=== PATIENT | male | born 1935 | race African-American/Black ===

== ENCOUNTER 2019-01-23 10:55 | Emergency (ER) | payer OTHER, MEDICAID ==
[~2019-01-23] VITALS: Ht 165.1 cm; Wt 50.0 kg
[~2019-01-23 10:55] MED LIST: INSU100V3 SUBCUT; NIFE30TA94 PO
[2019-01-23 11:46] LABS: BASOPHILS % 0.7 % (0.0-2.0); EOSINOPHILS % 0.4 % (0.0-5.0); HEMATOCRIT. 32.4 % (42.0-52.0); HEMOGLOBIN. 10.6 g/dL (14.0-18.0); LYMPHOCYTES % 25.9 % (20.0-50.0); MEAN CORPUSCULAR HEMOGLOBIN 26.9 pg (28.0-32.0); MEAN CORPUSCULAR VOLUME 82.2 fL (80.0-94.0); MEAN PLATELET VOLUME 8.5 fl (7.4-10.4); MONOCYTES % 4.1 % (2.0-8.0); NEUTROPHILS % 68.9 % (40.0-76.0); PLATELET 215 x1000/uL (130-400); RED BLOOD CELL COUNT 3.94 mill/uL (4.7-6.1); RED CELL DISTRIBUTION WIDTH 15.2 % (11.6-14.6)
[2019-01-23 12:21] LABS: CHLORIDE 110 mEq/L (98-107)
[2019-01-23 18:14] VITALS: BP 126/54
== END 2019-01-23 17:16 | disposition short-term general hospital (02) ==
LOC: ER 10:55 → EDBEDREQTM 14:09 → CANBEDREQ 16:46 → ER 17:16
DX: R55 Syncope and collapse (principal); D64.9 Anemia, unspecified; I12.9 Hypertensive chronic kidney disease with stage 1 through stage 4 chronic kidney disease, or unspecified chronic kidney disease; E11.22 Type 2 diabetes mellitus with diabetic chronic kidney disease; N18.9 Chronic kidney disease, unspecified; Z79.4 Long term (current) use of insulin
CPT/HCPCS: 36415; 70486; 71045; 83880; 84484; 93005; 99285

== ENCOUNTER 2019-10-28 13:19 | Inpatient (IN) | payer OTHER, MEDICAID ==
[~2019-10-28] VITALS: Ht 157.5 cm; Wt 47.3 kg
[2019-10-28] MEDS ORDERED: SODIUM CHLORIDE 0.9% 1,000 ML IV ONE (13:55)
[2019-10-28 15:20] LABS: BASOPHILS % 0.6 % (0.0-2.0); EOSINOPHILS % 0.1 % (0.0-5.0); HEMATOCRIT. 26.9 % (42.0-52.0); HEMOGLOBIN. 8.9 g/dL (14.0-18.0); LYMPHOCYTES % 19.4 % (20.0-50.0); MEAN CORPUSCULAR HEMOGLOBIN 27.5 pg (28.0-32.0); MEAN CORPUSCULAR VOLUME 83.5 fL (80.0-94.0); MEAN PLATELET VOLUME 8.4 fl (7.4-10.4); MONOCYTES % 3.8 % (2.0-8.0); NEUTROPHILS % 76.1 % (40.0-76.0); PLATELET 143 x1000/uL (130-400); RED BLOOD CELL COUNT 3.22 mill/uL (4.7-6.1); RED CELL DISTRIBUTION WIDTH 16.4 % (11.6-14.6)
[2019-10-28 15:22] LABS: CHLORIDE 114 mEq/L (98-107)
[2019-10-28 15:25] LABS: INR 1.1; PROTHROMBIN TIME 11.9 sec (9.6-11.0)
[2019-10-28] MEDS ORDERED: POTASSIUM CHLORIDE 20MEQ TABLET SR PO ONE (16:00)
[2019-10-28 20:00] VITALS: BP 123/53
[2019-10-28 21:00] VITALS: BP 128/76
[2019-10-28] MEDS ORDERED: INSU100V36 SQ (23:00)
[2019-10-28] MEDS ORDERED: TAMS-11 MT (23:00)
[2019-10-28] MEDS ORDERED: FINA5TAB11 PO (23:00)
[2019-10-28] MEDS ORDERED: DULA0.75 SQ (23:00)
[2019-10-28] MEDS ORDERED: HYDR-4135 MT (23:00)
[2019-10-28] MEDS ORDERED: ATOR20TA65 MT (23:00)
[2019-10-28] MEDS ORDERED: CHLO25TA2 MT (23:00)
[2019-10-28] MEDS ORDERED: VIT1TABL62 PO (23:00)
[2019-10-28] MEDS ORDERED: INSU100C6 SQ (23:00)
[2019-10-28] MEDS ORDERED: LOSA100T32 MT (23:00)
[2019-10-28] MEDS ORDERED: NISO40TA3 MT (23:00)
[2019-10-28] MEDS ORDERED: CLONIDINE 0.1MG TABLET PO PRN (23:45)
[2019-10-28] MEDS ORDERED: HYDROCODONE/ACETAMINOPHEN 5/325MG TABLET PO PRN (23:45)
[2019-10-28] MEDS ORDERED: DEXTROSE 50% WATER 50ML SYRINGE IV PRN (23:45)
[2019-10-29] VITALS (9 sets, daily range): BP systolic 133–176; BP diastolic 48–68
[2019-10-29] MEDS: SODIUM CHLORIDE 0.45% 1,000 ML IV SCH ×2 (01:16→15:07)
[2019-10-29 05:13] LABS: CLARITY URINE CLEAR (CLEAR); COLOR URINE YELLOW (YELLOW); KETONES URINE NEGATIVE (NEGATIVE); LEUKOCYTE ESTERASE URINE NEGATIVE (NEGATIVE); NITRITE URINE NEGATIVE (NEGATIVE); OCCULT BLOOD URINE NEGATIVE (NEGATIVE); PROTEIN URINE 1+ (NEGATIVE); SPECIFIC GRAVITY URINE 1.014 (1.005-1.030); UROBILINOGEN URINE 0.2 E.U./dL (0.2-1.0)
[2019-10-29] MEDS: PANTOPRAZOLE 40MG DR TABLET PO SCH (06:20)
[2019-10-29] MEDS: BLOOD SUGAR DIAGNOSTIC STRIP TEST SCH ×4 (06:36→20:40)
[2019-10-29] MEDS: INSULIN LISPRO 100 UNITS/ML SUBCUT SCH ×4 (07:32→20:45)
[2019-10-29] MEDS ORDERED: HYDRALAZINE HCL 25MG TABLET PO SCH (08:45)
[2019-10-29 08:54] LABS: BASOPHILS % 0.4 % (0.0-2.0); EOSINOPHILS % 0.4 % (0.0-5.0); HEMATOCRIT. 21.5 % (42.0-52.0); HEMOGLOBIN. 7.1 g/dL (14.0-18.0); LYMPHOCYTES % 24.2 % (20.0-50.0); MEAN CORPUSCULAR HEMOGLOBIN 27.2 pg (28.0-32.0); MEAN CORPUSCULAR VOLUME 82.8 fL (80.0-94.0); MEAN PLATELET VOLUME 8.9 fl (7.4-10.4); MONOCYTES % 8.2 % (2.0-8.0); NEUTROPHILS % 66.8 % (40.0-76.0); PLATELET 129 x1000/uL (130-400); RED BLOOD CELL COUNT 2.59 mill/uL (4.7-6.1)
[2019-10-29 08:57] LABS: CHLORIDE 113 mEq/L (98-107)
[2019-10-29] MEDS ORDERED: HEPARIN 5000 UNITS/ML VIAL SUBCUT SCH (09:00)
[2019-10-29] MEDS ORDERED: ASPIRIN 81MG TABLET PO SCH (09:00)
[2019-10-29] MEDS: TAMSULOSIN HCL 0.4MG SR CAPSULE PO SCH (09:04)
[2019-10-29 09:08] LABS: LDL CHOLESTEROL 46 mg/dL (5-100)
[2019-10-29 09:09] LABS: HDL CHOLESTEROL 50 mg/dL (40-59)
[2019-10-29] MEDS ORDERED: SODIUM POLYSTYRENE SULFONATE 15 G/60 ML BOT PO SCH (12:00)
[2019-10-29 12:40] LABS: TOTAL IRON BINDING CAPACITY 259 ug/dL (250-450)
[2019-10-29] MEDS: HYDRALAZINE HCL 100MG TABLET PO SCH ×2 (13:10→21:57)
[2019-10-29] MEDS: FERROUS SULFATE 325MG TABLET PO SCH ×2 (13:10→17:29)
[2019-10-29] MEDS: LOSARTAN POTASSIUM 50 MG TABLET PO SCH ×2 (13:19→20:40)
[2019-10-29] MEDS: AMLODIPINE 5MG TABLET PO SCH (20:39)
[2019-10-30] VITALS (9 sets, daily range): BP systolic 107–185; BP diastolic 53–64
[2019-10-30] MEDS: SODIUM CHLORIDE 0.45% 1,000 ML IV SCH ×2 (04:28→17:45)
[2019-10-30] MEDS: HYDRALAZINE HCL 100MG TABLET PO SCH ×3 (05:18→21:00)
[2019-10-30 06:12] LABS: BASOPHILS % 0.9 % (0.0-2.0); EOSINOPHILS % 0.4 % (0.0-5.0); HEMATOCRIT. 28.4 % (42.0-52.0); HEMOGLOBIN. 9.4 g/dL (14.0-18.0); LYMPHOCYTES % 29.2 % (20.0-50.0); MEAN CORPUSCULAR HEMOGLOBIN 27.4 pg (28.0-32.0); MEAN CORPUSCULAR VOLUME 82.9 fL (80.0-94.0); MEAN PLATELET VOLUME 9.2 fl (7.4-10.4); MONOCYTES % 6.7 % (2.0-8.0); NEUTROPHILS % 62.8 % (40.0-76.0); PLATELET 138 x1000/uL (130-400); RED BLOOD CELL COUNT 3.43 mill/uL (4.7-6.1); RED CELL DISTRIBUTION WIDTH 16.4 % (11.6-14.6)
[2019-10-30] MEDS: PANTOPRAZOLE 40MG DR TABLET PO SCH (06:15)
[2019-10-30 06:27] LABS: T4 FREE 1.35 ng/dL (0.76-1.46)
[2019-10-30 06:51] LABS: VITAMIN B12 SERUM 702 pg/mL (211-911)
[2019-10-30] MEDS: INSULIN LISPRO 100 UNITS/ML SUBCUT SCH ×4 (07:21→20:36)
[2019-10-30] MEDS: BLOOD SUGAR DIAGNOSTIC STRIP TEST SCH ×4 (07:21→20:37)
[2019-10-30] MEDS: LOSARTAN POTASSIUM 50 MG TABLET PO SCH ×2 (09:16→20:36)
[2019-10-30] MEDS: FERROUS SULFATE 325MG TABLET PO SCH (09:16)
[2019-10-30] MEDS: AMLODIPINE 5MG TABLET PO SCH ×2 (09:16→20:36)
[2019-10-30] MEDS: TAMSULOSIN HCL 0.4MG SR CAPSULE PO SCH (09:17)
[2019-10-30] MEDS: MAGNESIUM OXIDE 400MG TABLET PO SCH (10:31)
[2019-10-30] MEDS ORDERED: SORBITOL 70% SOLN 30ML PO SCH (10:45)
[2019-10-30] MEDS: DOCUSATE SODIUM 250MG CAPSULE PO SCH (17:45)
[2019-10-31] VITALS (7 sets, daily range): BP systolic 131–153; BP diastolic 51–88
[2019-10-31] MEDS: HYDRALAZINE HCL 100MG TABLET PO SCH ×3 (06:32→21:18)
[2019-10-31] MEDS: BLOOD SUGAR DIAGNOSTIC STRIP TEST SCH ×4 (06:32→20:51)
[2019-10-31] MEDS: SODIUM CHLORIDE 0.45% 1,000 ML IV SCH ×2 (06:32→20:34)
[2019-10-31] MEDS: PANTOPRAZOLE 40MG DR TABLET PO SCH (06:32)
[2019-10-31 07:16] LABS: BASOPHILS % 0.9 % (0.0-2.0); EOSINOPHILS % 0.1 % (0.0-5.0); HEMATOCRIT. 28.6 % (42.0-52.0); HEMOGLOBIN. 9.6 g/dL (14.0-18.0); LYMPHOCYTES % 34.4 % (20.0-50.0); MEAN CORPUSCULAR HEMOGLOBIN 27.8 pg (28.0-32.0); MEAN CORPUSCULAR VOLUME 83.2 fL (80.0-94.0); MEAN PLATELET VOLUME 9.5 fl (7.4-10.4); MONOCYTES % 6.6 % (2.0-8.0); PLATELET 139 x1000/uL (130-400); RED BLOOD CELL COUNT 3.43 mill/uL (4.7-6.1); RED CELL DISTRIBUTION WIDTH 15.8 % (11.6-14.6)
[2019-10-31] MEDS: INSULIN LISPRO 100 UNITS/ML SUBCUT SCH ×4 (07:41→20:52)
[2019-10-31] MEDS: MAGNESIUM OXIDE 400MG TABLET PO SCH (08:33)
[2019-10-31] MEDS: LOSARTAN POTASSIUM 50 MG TABLET PO SCH ×2 (08:34→21:19)
[2019-10-31] MEDS: AMLODIPINE 5MG TABLET PO SCH ×2 (08:34→21:19)
[2019-10-31] MEDS: DOCUSATE SODIUM 250MG CAPSULE PO SCH ×2 (08:34→17:00)
[2019-10-31] MEDS: TAMSULOSIN HCL 0.4MG SR CAPSULE PO SCH (08:34)
[2019-11-01] MEDS ORDERED: FAMOTIDINE 20MG TABLET PO SCH (09:00)
== END 2019-10-31 22:50 | disposition short-term general hospital (02) | DRG 73 ==
LOC: ER 13:19 → 6WST 18:09 → EDBEDREQ 18:10 → ENRESERV 19:57
PROVIDERS: ADMIT Internal Medicine; ATTEND Internal Medicine
PROC: 30233N1 Transfusion of Nonautologous Red Blood Cells into Peripheral Vein, Percutaneous Approach (ICD-10-PCS; principal; 2019-10-29)
DX: G90.8 Other disorders of autonomic nervous system (principal); I50.33 Acute on chronic diastolic (congestive) heart failure; N17.9 Acute kidney failure, unspecified; G93.40 Encephalopathy, unspecified; I13.0 Hypertensive heart and chronic kidney disease with heart failure and stage 1 through stage 4 chronic kidney disease, or unspecified chronic kidney disease; D50.9 Iron deficiency anemia, unspecified; D73.89 Other diseases of spleen; N18.9 Chronic kidney disease, unspecified; N40.1 Benign prostatic hyperplasia with lower urinary tract symptoms; R33.8 Other retention of urine; N20.0 Calculus of kidney; J44.9 Chronic obstructive pulmonary disease, unspecified; I27.20 Pulmonary hypertension, unspecified; R74.0 Nonspecific elevation of levels of transaminase and lactic acid dehydrogenase [LDH]; F17.210 Nicotine dependence, cigarettes, uncomplicated; E87.5 Hyperkalemia; E11.22 Type 2 diabetes mellitus with diabetic chronic kidney disease; E83.42 Hypomagnesemia; E87.8 Other disorders of electrolyte and fluid balance, not elsewhere classified; Z86.73 Personal history of transient ischemic attack (TIA), and cerebral infarction without residual deficits; Z71.6 Tobacco abuse counseling; Z79.899 Other long term (current) drug therapy; Z03.818 Encounter for observation for suspected exposure to other biological agents ruled out
CPT/HCPCS: 36415; 71045; 76770; 80048; 80053; 80061; 81003; 82270; 82607; 82728; 82962; 83036; 83540; 83550; 83735; 84153; 84439; 84484; 85025; 85044; 86850; 86900; 86920; 87635; 93005; 93306; 93880; 97162; 99285; J1644; J1815; J7030; P9016; G0103

== ENCOUNTER 2020-02-10 10:40 | Emergency (ER) | payer OTHER, MEDICAID ==
[~2020-02-10] VITALS: Ht 170.2 cm; Wt 65.0 kg
[~2020-02-10 10:40] MED LIST changes: +ATOR20TA65 MT; +CHLO25TA2 MT; +DULA0.75 SQ; +FINA5TAB11 PO; +HYDR-4135 MT; +INSU100C6 SQ; +INSU100V36 SQ; +LOSA100T32 MT; +NISO40TA3 MT; +TAMS-11 MT; +VIT1TABL62 PO
[2020-02-10 12:14] LABS: BASOPHILS % 1.2 % (0.0-2.0); EOSINOPHILS % 0.1 % (0.0-5.0); HEMATOCRIT. 28.7 % (42.0-52.0); HEMOGLOBIN. 9.6 g/dL (14.0-18.0); LYMPHOCYTES % 20.7 % (20.0-50.0); MEAN CORPUSCULAR HEMOGLOBIN 27.4 pg (28.0-32.0); MEAN CORPUSCULAR VOLUME 81.7 fL (80.0-94.0); MEAN PLATELET VOLUME 10.4 fl (7.4-10.4); MONOCYTES % 7.1 % (2.0-8.0); NEUTROPHILS % 70.9 % (40.0-76.0); PLATELET 199 x1000/uL (130-400); RED BLOOD CELL COUNT 3.51 mill/uL (4.7-6.1); RED CELL DISTRIBUTION WIDTH 13.6 % (11.6-14.6)
[2020-02-10 12:16] LABS: CHLORIDE 104 mEq/L (98-107)
[2020-02-10] MEDS ORDERED: SODIUM CHLORIDE 0.9% 500 ML IV NR (13:15)
[2020-02-10] MEDS ORDERED: SODIUM CHLORIDE 0.9% 1,000 ML IV ONE (23:48)
[2020-02-11 00:14] VITALS: BP 149/64
== END 2020-02-11 00:42 | disposition short-term general hospital (02) ==
LOC: ER 10:40
DX: I12.9 Hypertensive chronic kidney disease with stage 1 through stage 4 chronic kidney disease, or unspecified chronic kidney disease (principal); E11.22 Type 2 diabetes mellitus with diabetic chronic kidney disease; N18.9 Chronic kidney disease, unspecified; R55 Syncope and collapse; Z86.73 Personal history of transient ischemic attack (TIA), and cerebral infarction without residual deficits; Z79.4 Long term (current) use of insulin; Z79.899 Other long term (current) drug therapy; Z20.828 Contact with and (suspected) exposure to other viral communicable diseases
CPT/HCPCS: 36415; 71045; 76770; 80053; 82962; 83880; 84484; 85025; 87426; 93005; 96360; 96361; 99285

== ENCOUNTER 2020-12-28 06:23 | Inpatient (IN) | payer OTHER, MEDICAID ==
[~2020-12-28] VITALS: Ht 157.5 cm; Wt 42.7 kg
[~2020-12-28 06:23] MED LIST changes: +LEVO250T58 MT; -LOSA100T32 MT; -NISO40TA3 MT; +SODI650T MT
[2020-12-28] MEDS ORDERED: SODIUM CHLORIDE 0.9% 1,000 ML IV ONE (06:45)
[2020-12-28 08:51] LABS: BASOPHILS % 0.7 % (0.0-2.0); HEMATOCRIT. 26.3 % (42.0-52.0); HEMOGLOBIN. 8.4 g/dL (14.0-18.0); LYMPHOCYTES % 8.3 % (20.0-50.0); MEAN CORPUSCULAR VOLUME 84.3 fL (80.0-94.0); MEAN PLATELET VOLUME 8.2 fl (7.4-10.4); MONOCYTES % 7.2 % (2.0-8.0); NEUTROPHILS % 83.8 % (40.0-76.0); PLATELET 207 x1000/uL (130-400); RED BLOOD CELL COUNT 3.12 mill/uL (4.7-6.1); RED CELL DISTRIBUTION WIDTH 17.2 % (11.6-14.6)
[2020-12-28 09:28] LABS: CHLORIDE 115 mEq/L (98-107)
[2020-12-28] MEDS ORDERED: FUROSEMIDE 100MG/10ML VIAL IV STA (10:37)
[2020-12-28] MEDS ORDERED: DEXTROSE 50% WATER 50ML SYRINGE IV ONE ×2 (10:45→17:15)
[2020-12-28] MEDS ORDERED: INSULIN REGULAR (HUMULIN R) 300UNITS/3ML VIAL IV ONE (10:45)
[2020-12-28] MEDS ORDERED: SODIUM BICARBONATE 8.4% 1 MEQ/ML 50ML SYR IV ONE (10:45)
[2020-12-28] MEDS ORDERED: CALCIUM CHLORIDE 1GM/10ML SYR IV ONE (10:45)
[2020-12-28] MEDS ORDERED: ALBUTEROL (0.083%) 2.5MG/3ML NEB HHN ONE (10:45)
[2020-12-28] MEDS ORDERED: CLONIDINE 0.2MG TABLET PO ONE (17:00)
[2020-12-28] MEDS ORDERED: DEXT 5%/0.45% NACL 1000ML 1,000 ML IV ONE (17:30)
[2020-12-28 23:30] VITALS: BP 182/77
[2020-12-29] MEDS ORDERED: CLONIDINE 0.1MG TABLET PO SCH (01:45)
[2020-12-29] MEDS ORDERED: CLONIDINE 0.1MG TABLET PO PRN (01:45)
[2020-12-29] MEDS ORDERED: DEXTROSE 50% WATER 50ML SYRINGE IV PRN (02:00)
[2020-12-29 02:32] VITALS: BP 182/77
[2020-12-29] MEDS: SODIUM BICARBONATE 50 MEQ in DEXT 5%/0.45% NACL 1000ML 1,000 ML IV SCH ×2 (03:31→13:50)
[2020-12-29 04:00] VITALS: BP 159/72
[2020-12-29] MEDS: INSULIN LISPRO 100 UNITS/ML SUBCUT SCH ×5 (04:00→21:42)
[2020-12-29] MEDS: BLOOD SUGAR DIAGNOSTIC STRIP TEST SCH ×5 (04:10→21:40)
[2020-12-29 08:00] VITALS: BP 178/76
[2020-12-29] MEDS: ENOXAPARIN 30MG/0.3ML SYR SUBCUT SCH (08:37)
[2020-12-29] MEDS: TAMSULOSIN HCL 0.4MG SR CAPSULE PO SCH (08:38)
[2020-12-29 10:15] LABS: HEMATOCRIT 26.6 % (42.0-52.0); HEMOGLOBIN 8.7 g/dL (14.0-18.0); MEAN CORPUSCULAR HEMOGLOBIN 26.8 pg (28.0-32.0); MEAN CORPUSCULAR VOLUME 81.9 fL (80.0-94.0); PLATELET 210 x1000/uL (130-400); RED BLOOD CELL COUNT 3.25 mill/uL (4.7-6.1); RED CELL DISTRIBUTION WIDTH 17.1 % (11.6-14.6)
[2020-12-29 10:44] LABS: CHLORIDE 108 mEq/L (98-107)
[2020-12-29 12:00] VITALS: BP 118/68
[2020-12-29] MEDS ORDERED: SODIUM POLYSTYRENE SULFONATE 15 G/60 ML BOT PO NR (13:00)
[2020-12-29 13:45] LABS: BASOPHILS % 1.1 % (0.0-2.0); EOSINOPHILS % 0.3 % (0.0-5.0); HEMATOCRIT. 23.1 % (42.0-52.0); HEMOGLOBIN. 7.8 g/dL (14.0-18.0); LYMPHOCYTES % 18.4 % (20.0-50.0); MEAN CORPUSCULAR HEMOGLOBIN 27.2 pg (28.0-32.0); MEAN CORPUSCULAR VOLUME 80.2 fL (80.0-94.0); MEAN PLATELET VOLUME 8.6 fl (7.4-10.4); MONOCYTES % 6.6 % (2.0-8.0); NEUTROPHILS % 73.6 % (40.0-76.0); PLATELET 185 x1000/uL (130-400); RED BLOOD CELL COUNT 2.88 mill/uL (4.7-6.1); RED CELL DISTRIBUTION WIDTH 16.9 % (11.6-14.6)
[2020-12-29] MEDS: HYDRALAZINE HCL 50MG TABLET PO SCH ×2 (13:52→21:40)
[2020-12-29] MEDS ORDERED: INSU100V3 SUBCUT (15:11)
[2020-12-29] MEDS ORDERED: SODI650T MT (15:11)
[2020-12-29] MEDS ORDERED: ACETAMINOPHEN 650MG SUPP PR PRN (15:15)
[2020-12-29] MEDS ORDERED: LORAZEPAM 2MG/ML CPJ IV PRN (15:15)
[2020-12-29] MEDS ORDERED: ONDANSETRON HCL 4MG/2ML INJ IV PRN (15:15)
[2020-12-29] MEDS ORDERED: ACETAMINOPHEN 325MG TABLET PO PRN (15:15)
[2020-12-29] MEDS ORDERED: NALOXONE HCL 0.4MG/ML VIAL IV PRN (15:15)
[2020-12-29 16:00] VITALS: BP 129/60
[2020-12-29] MEDS: SODIUM BICARBONATE 650 MG TABLET PO SCH (17:31)
[2020-12-29] MEDS: HYDROCODONE/ACETAMINOPHEN 5/325MG TABLET PO PRN (17:33)
[2020-12-29 20:41] VITALS: BP 149/60
[2020-12-30 00:09] VITALS: BP 144/56
[2020-12-30 04:00] VITALS: BP 138/60
[2020-12-30] MEDS: BLOOD SUGAR DIAGNOSTIC STRIP TEST SCH ×2 (06:31→12:51)
[2020-12-30] MEDS: HYDRALAZINE HCL 50MG TABLET PO SCH ×2 (06:35→12:53)
[2020-12-30 06:46] LABS: BASOPHILS % 1.1 % (0.0-2.0); EOSINOPHILS % 0.6 % (0.0-5.0); HEMATOCRIT. 24.1 % (42.0-52.0); LYMPHOCYTES % 33.3 % (20.0-50.0); MEAN CORPUSCULAR HEMOGLOBIN 26.8 pg (28.0-32.0); MEAN CORPUSCULAR VOLUME 80.4 fL (80.0-94.0); MEAN PLATELET VOLUME 8.7 fl (7.4-10.4); MONOCYTES % 6.8 % (2.0-8.0); NEUTROPHILS % 58.2 % (40.0-76.0); PLATELET 218 x1000/uL (130-400); RED CELL DISTRIBUTION WIDTH 16.9 % (11.6-14.6)
[2020-12-30] MEDS: INSULIN LISPRO 100 UNITS/ML SUBCUT SCH ×2 (07:50→12:51)
[2020-12-30 08:00] VITALS: BP 149/69
[2020-12-30] MEDS: SODIUM BICARBONATE 650 MG TABLET PO SCH ×2 (09:00→12:51)
[2020-12-30] MEDS: TAMSULOSIN HCL 0.4MG SR CAPSULE PO SCH (09:00)
[2020-12-30] MEDS: ENOXAPARIN 30MG/0.3ML SYR SUBCUT SCH (09:00)
[2020-12-30] MEDS: HYDROCODONE/ACETAMINOPHEN 5/325MG TABLET PO PRN ×2 (09:02→12:52)
[2020-12-30 12:11] VITALS: BP 135/63
[2020-12-30 14:16] VITALS: BP 126/66
== END 2020-12-30 16:00 | disposition home or self-care (01) | DRG 638 ==
LOC: ER 06:40 → EDBEDREQ 17:21 → EDBEDREQTM 17:21 → EDBEDREQ 17:22 → MICUSO 20:25 → 6WST 22:20
PROVIDERS: ADMIT Internal Medicine; ATTEND Internal Medicine
DX: E11.649 Type 2 diabetes mellitus with hypoglycemia without coma (principal); J44.1 Chronic obstructive pulmonary disease with (acute) exacerbation; E11.22 Type 2 diabetes mellitus with diabetic chronic kidney disease; N17.9 Acute kidney failure, unspecified; D64.9 Anemia, unspecified; I16.0 Hypertensive urgency; N18.9 Chronic kidney disease, unspecified; I12.9 Hypertensive chronic kidney disease with stage 1 through stage 4 chronic kidney disease, or unspecified chronic kidney disease; E87.5 Hyperkalemia; R91.1 Solitary pulmonary nodule; N40.0 Benign prostatic hyperplasia without lower urinary tract symptoms; Z86.73 Personal history of transient ischemic attack (TIA), and cerebral infarction without residual deficits; Z79.899 Other long term (current) drug therapy; Z79.4 Long term (current) use of insulin
CPT/HCPCS: 36415; 71045; 80048; 80053; 82962; 83036; 84132; 84153; 84484; 85025; 85027; 93005; 94644; 97116; 97162; 99285; J1650; J1815; J1940; J3490; J7030; A4315; G0103

== ENCOUNTER 2021-01-11 08:56 | Inpatient (IN) | payer OTHER, MEDICAID ==
[~2021-01-11] VITALS: Ht 157.5 cm; Wt 51.3 kg
[~2021-01-11 08:56] MED LIST changes: -DULA0.75 SQ; -INSU100C6 SQ; -INSU100V3 SUBCUT; -INSU100V36 SQ; -LEVO250T58 MT
[2021-01-11] MEDS ORDERED: SODIUM CHLORIDE 0.9% 250 ML IV ONE (09:15)
[2021-01-11 10:16] LABS: BASOPHILS % 0.6 % (0.0-2.0); EOSINOPHILS % 0.1 % (0.0-5.0); HEMATOCRIT. 23.8 % (42.0-52.0); HEMOGLOBIN. 7.9 g/dL (14.0-18.0); LYMPHOCYTES % 11.1 % (20.0-50.0); MEAN CORPUSCULAR HEMOGLOBIN 27.2 pg (28.0-32.0); MEAN PLATELET VOLUME 8.7 fl (7.4-10.4); NEUTROPHILS % 82.2 % (40.0-76.0); PLATELET 198 x1000/uL (130-400); RED CELL DISTRIBUTION WIDTH 16.9 % (11.6-14.6)
[2021-01-11 10:23] LABS: CLARITY URINE CLEAR (CLEAR); COLOR URINE YELLOW (YELLOW); KETONES URINE NEGATIVE (NEGATIVE); LEUKOCYTE ESTERASE URINE NEGATIVE (NEGATIVE); NITRITE URINE NEGATIVE (NEGATIVE); OCCULT BLOOD URINE NEGATIVE (NEGATIVE); PROTEIN URINE TRACE (NEGATIVE); UROBILINOGEN URINE 0.2 E.U./dL (0.2-1.0)
[2021-01-11 10:27] LABS: CHLORIDE 114 mEq/L (98-107)
[2021-01-11] MEDS ORDERED: DEXTROSE 50% WATER 50ML SYRINGE IV ONE (11:00)
[2021-01-11] MEDS ORDERED: SODIUM POLYSTYRENE SULFONATE 15 G/60 ML BOT PO NR (11:11)
[2021-01-11] MEDS ORDERED: DEXTROSE 50% WATER 50ML SYRINGE IV NR (11:11)
[2021-01-11] MEDS ORDERED: SODIUM BICARBONATE 8.4% 1 MEQ/ML 50ML SYR IV NR (11:12)
[2021-01-11] MEDS ORDERED: IPRATROPIUM/ALBUTEROL 0.5-3(2.5)MG/3ML NEB HHN NR (11:12)
[2021-01-11] MEDS ORDERED: IPRATROPIUM/ALBUTEROL 0.5-3(2.5)MG/3ML NEB NEB PRN (11:15)
[2021-01-11] MEDS ORDERED: HYDRALAZINE 20MG/ML VIAL IV NR (11:15)
[2021-01-11] MEDS ORDERED: DEXTROSE 50% WATER 50ML SYRINGE IV PRN (11:15)
[2021-01-11] MEDS ORDERED: GUAIFENESIN 200MG/10ML SUGAR FREE UDC PO PRN (11:15)
[2021-01-11] MEDS ORDERED: ACETAMINOPHEN 325MG TABLET PO PRN (11:15)
[2021-01-11] MEDS ORDERED: NA PHOS,M-B/NA PHOS,DI-BA ENEMA 118ML PR PRN (11:15)
[2021-01-11] MEDS ORDERED: HYDROCODONE/ACETAMINOPHEN 5/325MG TABLET PO PRN (11:15)
[2021-01-11] MEDS ORDERED: ACETAMINOPHEN 650MG SUPP PR PRN (11:15)
[2021-01-11] MEDS ORDERED: ONDANSETRON HCL 4MG/2ML INJ IV PRN (11:15)
[2021-01-11] MEDS ORDERED: LORAZEPAM 0.5MG TABLET PO PRN (11:15)
[2021-01-11] MEDS ORDERED: DOCUSATE SODIUM 100MG CAPSULE PO PRN (11:15)
[2021-01-11] MEDS ORDERED: MAGNESIUM/ALUMINUM HYDROXIDE/SIMETHICONE 30ML UDC PO PRN (11:15)
[2021-01-11] MEDS ORDERED: DIPHENHYDRAMINE 50MG/ML VIAL IV PRN (11:15)
[2021-01-11] MEDS ORDERED: CALCIUM GLUCONATE 1GM PREMIX 50 ML IV NR (11:30)
[2021-01-11] MEDS: BLOOD SUGAR DIAGNOSTIC STRIP TEST SCH ×5 (11:30→20:41)
[2021-01-11] MEDS ORDERED: NALOXONE HCL 0.4MG/ML VIAL IV PRN (11:30)
[2021-01-11] MEDS: CLONIDINE 0.1MG TABLET PO PRN (12:31)
[2021-01-11] MEDS: FAMOTIDINE 20MG/2ML VIAL IV SCH (12:44)
[2021-01-11] MEDS: DEXT 5%/0.45% NACL 1000ML 1,000 ML IV SCH ×2 (12:52→16:37)
[2021-01-11] MEDS ORDERED: MORPHINE SULFATE 2 MG/ML CPJ (NOT FOR IM USE) IV ONE (13:45)
[2021-01-11 15:38] LABS: HEPATITIS B SURFACE ANTIGEN NEGATIVE
[2021-01-11 16:00] VITALS: BP 153/67
[2021-01-11] MEDS: HYDRALAZINE HCL 50MG TABLET PO SCH ×2 (16:38→22:27)
[2021-01-11 18:51] VITALS: BP 153/67
[2021-01-11 20:00] VITALS: BP 130/70
[2021-01-12] VITALS (9 sets, daily range): BP systolic 119–180; BP diastolic 59–96
[2021-01-12] MEDS: BLOOD SUGAR DIAGNOSTIC STRIP TEST SCH ×7 (04:53→23:55)
[2021-01-12] MEDS: HYDRALAZINE HCL 50MG TABLET PO SCH ×3 (06:01→21:39)
[2021-01-12 06:31] LABS: HEMATOCRIT. 21.9 % (42.0-52.0); HEMOGLOBIN. 7.3 g/dL (14.0-18.0); LYMPHOCYTES % 18.9 % (20.0-50.0); MEAN CORPUSCULAR HEMOGLOBIN 27.2 pg (28.0-32.0); MEAN CORPUSCULAR VOLUME 82.1 fL (80.0-94.0); MEAN PLATELET VOLUME 9.2 fl (7.4-10.4); MONOCYTES % 7.3 % (2.0-8.0); NEUTROPHILS % 71.8 % (40.0-76.0); PLATELET 195 x1000/uL (130-400); RED BLOOD CELL COUNT 2.67 mill/uL (4.7-6.1); RED CELL DISTRIBUTION WIDTH 17.6 % (11.6-14.6)
[2021-01-12 07:02] LABS: CHLORIDE 116 mEq/L (98-107)
[2021-01-12 08:07] LABS: T4 FREE 1.02 ng/dL (0.76-1.46)
[2021-01-12 08:08] LABS: LDL CHOLESTEROL 23 mg/dL (5-100)
[2021-01-12 08:12] LABS: HDL CHOLESTEROL 47 mg/dL (40-59)
[2021-01-12] MEDS: FAMOTIDINE 20MG/2ML VIAL IV SCH (08:55)
[2021-01-12] MEDS ORDERED: LIDOCAINE HCL 1% 30ML VIAL (10MG/ML) ONE (12:40)
[2021-01-12 13:44] LABS: INR 1.1; PROTHROMBIN TIME 11.4 sec (9.6-11.0)
[2021-01-12] MEDS: CLONIDINE 0.1MG TABLET PO PRN (15:39)
[2021-01-12] MEDS: HYDRALAZINE 20MG/ML VIAL IV PRN ×2 (16:03→23:55)
[2021-01-12] MEDS ORDERED: HYDRALAZINE 20MG/ML VIAL IV NR (17:45)
[2021-01-12 23:14] LABS: INR 1.1; PROTHROMBIN TIME 11.6 sec (9.6-11.0)
[2021-01-13] VITALS: BP 171/74
[2021-01-13 04:00] VITALS: BP 177/71
[2021-01-13] MEDS: BLOOD SUGAR DIAGNOSTIC STRIP TEST SCH ×4 (04:29→16:00)
[2021-01-13] MEDS: CLONIDINE 0.1MG TABLET PO PRN (04:29)
[2021-01-13] MEDS: HYDRALAZINE HCL 50MG TABLET PO SCH (05:42)
[2021-01-13 06:21] LABS: EOSINOPHILS % 1.1 % (0.0-5.0); HEMATOCRIT. 25.1 % (42.0-52.0); HEMOGLOBIN. 8.4 g/dL (14.0-18.0); LYMPHOCYTES % 27.6 % (20.0-50.0); MEAN CORPUSCULAR HEMOGLOBIN 27.8 pg (28.0-32.0); MEAN PLATELET VOLUME 9.3 fl (7.4-10.4); MONOCYTES % 7.9 % (2.0-8.0); NEUTROPHILS % 62.4 % (40.0-76.0); PLATELET 202 x1000/uL (130-400); RED BLOOD CELL COUNT 3.03 mill/uL (4.7-6.1); RED CELL DISTRIBUTION WIDTH 16.9 % (11.6-14.6)
[2021-01-13] MEDS: HYDRALAZINE 20MG/ML VIAL IV PRN (06:47)
[2021-01-13 08:00] VITALS: BP 167/66
[2021-01-13] MEDS ORDERED: AMLODIPINE 5MG TABLET PO SCH (09:20)
[2021-01-13] MEDS: FAMOTIDINE 20MG/2ML VIAL IV SCH (09:23)
[2021-01-13 12:00] VITALS: BP 163/65
[2021-01-13] MEDS ORDERED: HYDRALAZINE HCL 100MG TABLET PO SCH (14:00)
[2021-01-13] MEDS ORDERED: HYDR100T26 MT (15:41)
[2021-01-13 15:53] VITALS: BP 155/69
[2021-01-13 16:00] VITALS: BP 149/56
[2021-01-14] MEDS ORDERED: FAMOTIDINE 20MG TABLET PO SCH (09:00)
== END 2021-01-13 20:20 | disposition left against medical advice (07) | DRG 71 ==
LOC: ER 08:56 → 7EST 11:03 → EDBEDREQ 11:07 → ENRESERV 13:13
PROVIDERS: ADMIT Internal Medicine; ATTEND Internal Medicine
PROC: 30233N1 Transfusion of Nonautologous Red Blood Cells into Peripheral Vein, Percutaneous Approach (ICD-10-PCS; principal; 2021-01-12)
PROC: 02HV33Z Insertion of Infusion Device into Superior Vena Cava, Percutaneous Approach (ICD-10-PCS; 2021-01-12)
PROC: B518ZZA Fluoroscopy of Superior Vena Cava, Guidance (ICD-10-PCS; 2021-01-12)
PROC: B548ZZA Ultrasonography of Superior Vena Cava, Guidance (ICD-10-PCS; 2021-01-12)
DX: G93.41 Metabolic encephalopathy (principal); K86.3 Pseudocyst of pancreas; J44.1 Chronic obstructive pulmonary disease with (acute) exacerbation; E44.1 Mild protein-calorie malnutrition; E11.649 Type 2 diabetes mellitus with hypoglycemia without coma; T38.3X5A Adverse effect of insulin and oral hypoglycemic [antidiabetic] drugs, initial encounter; D64.9 Anemia, unspecified; E11.22 Type 2 diabetes mellitus with diabetic chronic kidney disease; E87.5 Hyperkalemia; D49.0 Neoplasm of unspecified behavior of digestive system; Z53.29 Procedure and treatment not carried out because of patient's decision for other reasons; D73.89 Other diseases of spleen; I12.9 Hypertensive chronic kidney disease with stage 1 through stage 4 chronic kidney disease, or unspecified chronic kidney disease; R91.1 Solitary pulmonary nodule; Z20.822 Contact with and (suspected) exposure to COVID-19; N18.9 Chronic kidney disease, unspecified; N40.0 Benign prostatic hyperplasia without lower urinary tract symptoms; Z86.73 Personal history of transient ischemic attack (TIA), and cerebral infarction without residual deficits; Y92.89 Other specified places as the place of occurrence of the external cause; Z79.899 Other long term (current) drug therapy; Z68.20 Body mass index [BMI] 20.0-20.9, adult
CPT/HCPCS: 36415; 36573; 71045; 74181; 76700; 80048; 80053; 80061; 80076; 80320; 81003; 82105; 82378; 82962; 83036; 83880; 84132; 84439; 84443; 84484; 85014; 85018; 85025; 85049; 86301; 86705; 86709; 86803; 86850; 86900; 86920; 87340; 87426; 93005; 97162; 99291; C1725; C1769; J0360; J0610; J3490; J7050; P9016; G0480

== ENCOUNTER 2021-01-18 17:28 | Inpatient (IN) | payer OTHER, MEDICAID ==
[~2021-01-18] VITALS: Ht 162.6 cm; Wt 51.7 kg
[~2021-01-18 17:28] MED LIST changes: -CHLO25TA2 MT; -HYDR-4135 MT; +HYDR100T26 MT
[2021-01-18] MEDS ORDERED: ACETAMINOPHEN 500MG TABLET PO ONE (20:45)
[2021-01-18 21:40] LABS: BASOPHILS % 1.2 % (0.0-2.0); CHLORIDE 117 mEq/L (98-107); EOSINOPHILS % 1.7 % (0.0-5.0); HEMATOCRIT. 28.9 % (42.0-52.0); HEMOGLOBIN. 9.4 g/dL (14.0-18.0); LYMPHOCYTES % 24.7 % (20.0-50.0); MEAN CORPUSCULAR HEMOGLOBIN 27.3 pg (28.0-32.0); MEAN CORPUSCULAR VOLUME 83.6 fL (80.0-94.0); MEAN PLATELET VOLUME 9.1 fl (7.4-10.4); MONOCYTES % 11.5 % (2.0-8.0); NEUTROPHILS % 60.9 % (40.0-76.0); PLATELET 212 x1000/uL (130-400); RED BLOOD CELL COUNT 3.46 mill/uL (4.7-6.1); RED CELL DISTRIBUTION WIDTH 16.7 % (11.6-14.6)
[2021-01-18] MEDS ORDERED: HYDR-4001 MT (23:15)
[2021-01-19] VITALS (8 sets, daily range): BP systolic 150–171; BP diastolic 72–92
[2021-01-19 04:06] LABS: CLARITY URINE CLEAR (CLEAR); COLOR URINE YELLOW (YELLOW); KETONES URINE NEGATIVE (NEGATIVE); LEUKOCYTE ESTERASE URINE NEGATIVE (NEGATIVE); NITRITE URINE NEGATIVE (NEGATIVE); OCCULT BLOOD URINE NEGATIVE (NEGATIVE); PROTEIN URINE 1+ (NEGATIVE); SPECIFIC GRAVITY URINE 1.014 (1.005-1.030); UROBILINOGEN URINE 0.2 E.U./dL (0.2-1.0)
[2021-01-19] MEDS ORDERED: CLONIDINE 0.2MG TABLET PO NR (07:00)
[2021-01-19] MEDS ORDERED: MAGNESIUM/ALUMINUM HYDROXIDE/SIMETHICONE 30ML UDC PO PRN (10:30)
[2021-01-19] MEDS ORDERED: DEXTROSE 50% WATER 50ML SYRINGE IV PRN (10:30)
[2021-01-19] MEDS ORDERED: GUAIFENESIN 200MG/10ML SUGAR FREE UDC PO PRN (10:30)
[2021-01-19] MEDS ORDERED: DOCUSATE SODIUM 100MG CAPSULE PO PRN (10:30)
[2021-01-19] MEDS ORDERED: CEFTRIAXONE 1 G PREMIX 50 ML IV SCH (10:30)
[2021-01-19] MEDS ORDERED: ONDANSETRON HCL 4MG/2ML INJ IV PRN (10:30)
[2021-01-19] MEDS ORDERED: ACETAMINOPHEN 650MG SUPP PR PRN (10:30)
[2021-01-19] MEDS ORDERED: DIPHENHYDRAMINE 50MG/ML VIAL IV PRN (10:30)
[2021-01-19] MEDS ORDERED: CLONIDINE 0.1MG TABLET PO PRN (10:30)
[2021-01-19] MEDS ORDERED: LORAZEPAM 0.5MG TABLET PO PRN (10:30)
[2021-01-19] MEDS ORDERED: IPRATROPIUM/ALBUTEROL 0.5-3(2.5)MG/3ML NEB NEB PRN (10:30)
[2021-01-19] MEDS ORDERED: NA PHOS,M-B/NA PHOS,DI-BA ENEMA 118ML PR PRN (10:30)
[2021-01-19 10:52] LABS: BG CARBOXYHEMOGLOBIN 0.1 % (0.5-1.5); BG DEOXYHEMOGLOBIN 5.5 % (0.0-5.0); BG FRACTION INSPIRED OXYGEN 21; BG METHEMOGLOBIN 0.4 % (0.0-1.5); BG OXYGEN SATURATION 94.5 % (92.0-98.5); BG PCO2 32.1 mmHg (35.0-45.0); BG PH 7.412 (7.350-7.450); BG PO2 75.7 mmHg (75.0-100.0); BG TOTAL HEMOGLOBIN 9.4 g/dL (12.0-18.0); BG VENT MODE ROOM AIR
[2021-01-19] MEDS ORDERED: HYDRALAZINE 20MG/ML VIAL IV NR (11:15)
[2021-01-19] MEDS: BLOOD SUGAR DIAGNOSTIC STRIP TEST SCH ×3 (13:27→21:40)
[2021-01-19] MEDS: CEFTRIAXONE 1,000 MG in DEXTROSE 5% WATER 50 ML IV SCH (13:27)
[2021-01-19] MEDS: SODIUM BICARBONATE 650 MG TABLET PO SCH ×2 (13:28→17:33)
[2021-01-19] MEDS: TAMSULOSIN HCL 0.4MG SR CAPSULE PO SCH (13:28)
[2021-01-19] MEDS: HYDRALAZINE HCL 100MG TABLET PO SCH ×2 (13:28→21:34)
[2021-01-19] MEDS: FINASTERIDE 5MG TABLET PO SCH (13:28)
[2021-01-19] MEDS: SODIUM CHLORIDE 0.45% 1,000 ML IV SCH (13:29)
[2021-01-19] MEDS: INSULIN LISPRO 100 UNITS/ML SUBCUT SCH ×3 (13:36→21:35)
[2021-01-19 13:42] LABS: BASOPHILS % 1.8 % (0.0-2.0); EOSINOPHILS % 2.2 % (0.0-5.0); HEMATOCRIT. 28.9 % (42.0-52.0); HEMOGLOBIN. 9.6 g/dL (14.0-18.0); LYMPHOCYTES % 27.1 % (20.0-50.0); MEAN CORPUSCULAR HEMOGLOBIN 27.6 pg (28.0-32.0); MEAN CORPUSCULAR VOLUME 83.4 fL (80.0-94.0); MEAN PLATELET VOLUME 9.4 fl (7.4-10.4); MONOCYTES % 7.6 % (2.0-8.0); NEUTROPHILS % 61.3 % (40.0-76.0); PLATELET 214 x1000/uL (130-400); RED BLOOD CELL COUNT 3.46 mill/uL (4.7-6.1); RED CELL DISTRIBUTION WIDTH 16.5 % (11.6-14.6)
[2021-01-19 13:55] LABS: CHLORIDE 117 mEq/L (98-107)
[2021-01-19 14:51] LABS: CREATINE KINASE MB FRACTION 4.8 ng/mL (0.5-3.6)
[2021-01-19] MEDS: ALLOPURINOL 100 MG TABLET PO SCH (17:33)
[2021-01-19] MEDS ORDERED: HYDRALAZINE 20MG/ML VIAL IV PRN (18:03)
[2021-01-19] MEDS: ACETAMINOPHEN 325MG TABLET PO PRN (21:33)
[2021-01-19] MEDS: FAMOTIDINE 20MG TABLET PO SCH (21:33)
[2021-01-19] MEDS: AMLODIPINE 5MG TABLET PO SCH (21:34)
[2021-01-20] VITALS (10 sets, daily range): BP systolic 134–160; BP diastolic 49–79
[2021-01-20 01:14] LABS: PHOSPHORUS 4.6 mg/dL (2.5-4.9)
[2021-01-20 01:17] LABS: CREATINE KINASE MB FRACTION 4.3 ng/mL (0.5-3.6)
[2021-01-20] MEDS: SODIUM CHLORIDE 0.45% 1,000 ML IV SCH (01:41)
[2021-01-20] MEDS: HYDRALAZINE HCL 100MG TABLET PO SCH ×3 (05:16→21:53)
[2021-01-20 06:26] LABS: HEMOGLOBIN. 8.7 g/dL (14.0-18.0); MEAN CORPUSCULAR HEMOGLOBIN 27.5 pg (28.0-32.0); MEAN CORPUSCULAR VOLUME 81.8 fL (80.0-94.0); MEAN PLATELET VOLUME 9.8 fl (7.4-10.4); PLATELET 219 x1000/uL (130-400); RED BLOOD CELL COUNT 3.18 mill/uL (4.7-6.1); RED CELL DISTRIBUTION WIDTH 16.5 % (11.6-14.6)
[2021-01-20 06:32] LABS: CHLORIDE 114 mEq/L (98-107)
[2021-01-20 06:39] LABS: LDL CHOLESTEROL 40 mg/dL (5-100)
[2021-01-20 06:40] LABS: HDL CHOLESTEROL 54 mg/dL (40-59); TOTAL IRON BINDING CAPACITY 238 ug/dL (250-450)
[2021-01-20 06:43] LABS: T4 FREE 1.46 ng/dL (0.76-1.46)
[2021-01-20 06:48] LABS: *AMPHETAMINES SCREEN URINE NEGATIVE (NEGATIVE); *BARBITURATES SCREEN URINE NEGATIVE (NEGATIVE); *BENZODIAZEPINES SCREEN URINE NEGATIVE (NEGATIVE); *COCAINE SCREEN URINE NEGATIVE (NEGATIVE); CANNABINOID URINE SCREEN NEGATIVE (NEGATIVE); METHADONE URINE SCREEN NEGATIVE (NEGATIVE); OPIATES URINE SCREEN NEGATIVE (NEGATIVE); PHENCYCLIDINE URINE SCREEN NEGATIVE (NEGATIVE)
[2021-01-20 06:52] LABS: FOLIC ACID (FOLATE) SERUM 10.4 ng/mL (>5.38)
[2021-01-20] MEDS: BLOOD SUGAR DIAGNOSTIC STRIP TEST SCH ×4 (07:30→20:47)
[2021-01-20] MEDS: INSULIN LISPRO 100 UNITS/ML SUBCUT SCH ×4 (08:00→20:44)
[2021-01-20] MEDS ORDERED: LISINOPRIL 20MG TABLET PO SCH (09:00)
[2021-01-20] MEDS: AMLODIPINE 5MG TABLET PO SCH ×2 (09:48→20:45)
[2021-01-20] MEDS: SODIUM BICARBONATE 650 MG TABLET PO SCH ×3 (09:48→16:30)
[2021-01-20] MEDS: TAMSULOSIN HCL 0.4MG SR CAPSULE PO SCH (09:48)
[2021-01-20] MEDS: FINASTERIDE 5MG TABLET PO SCH (09:48)
[2021-01-20] MEDS: ALLOPURINOL 100 MG TABLET PO SCH (09:49)
[2021-01-20] MEDS: CEFTRIAXONE 1,000 MG in DEXTROSE 5% WATER 50 ML IV SCH (12:20)
[2021-01-20 17:30] LABS: PLATELET ESTIMATE NORMAL
[2021-01-20] MEDS ORDERED: NALOXONE HCL 0.4MG/ML VIAL IV PRN (20:15)
[2021-01-20] MEDS: FAMOTIDINE 20MG TABLET PO SCH (20:47)
[2021-01-21] VITALS: BP 149/64
[2021-01-21 04:00] VITALS: BP 168/78
[2021-01-21] MEDS: HYDRALAZINE HCL 100MG TABLET PO SCH ×3 (06:08→21:29)
[2021-01-21 07:23] LABS: EOSINOPHILS % 2.4 % (0.0-5.0); HEMATOCRIT. 26.9 % (42.0-52.0); HEMOGLOBIN. 8.9 g/dL (14.0-18.0); LYMPHOCYTES % 31.7 % (20.0-50.0); MEAN CORPUSCULAR HEMOGLOBIN 27.2 pg (28.0-32.0); MEAN CORPUSCULAR VOLUME 82.4 fL (80.0-94.0); MEAN PLATELET VOLUME 9.1 fl (7.4-10.4); MONOCYTES % 8.3 % (2.0-8.0); NEUTROPHILS % 56.6 % (40.0-76.0); PLATELET 211 x1000/uL (130-400); RED BLOOD CELL COUNT 3.26 mill/uL (4.7-6.1); RED CELL DISTRIBUTION WIDTH 16.1 % (11.6-14.6)
[2021-01-21] MEDS: BLOOD SUGAR DIAGNOSTIC STRIP TEST SCH ×4 (07:58→21:00)
[2021-01-21 08:00] VITALS: BP 149/55
[2021-01-21] MEDS: INSULIN LISPRO 100 UNITS/ML SUBCUT SCH ×4 (08:01→21:28)
[2021-01-21] MEDS: ACETAMINOPHEN 325MG TABLET PO PRN (08:09)
[2021-01-21] MEDS: AMLODIPINE 5MG TABLET PO SCH ×2 (09:17→20:43)
[2021-01-21] MEDS: TAMSULOSIN HCL 0.4MG SR CAPSULE PO SCH (09:17)
[2021-01-21] MEDS: ALLOPURINOL 100 MG TABLET PO SCH (09:17)
[2021-01-21] MEDS: SODIUM BICARBONATE 650 MG TABLET PO SCH ×3 (09:18→17:36)
[2021-01-21] MEDS: FINASTERIDE 5MG TABLET PO SCH (09:18)
[2021-01-21] MEDS ORDERED: SODIUM POLYSTYRENE SULFONATE 15 G/60 ML BOT PO NR (10:00)
[2021-01-21] MEDS: HYDROCODONE/ACETAMINOPHEN 5/325MG TABLET PO PRN ×2 (10:22→17:40)
[2021-01-21 12:00] VITALS: BP 148/59
[2021-01-21] MEDS: CEFTRIAXONE 1,000 MG in DEXTROSE 5% WATER 50 ML IV SCH (12:19)
[2021-01-21 16:00] VITALS: BP 116/61
[2021-01-21 20:00] VITALS: BP 140/63
[2021-01-21] MEDS: FAMOTIDINE 20MG TABLET PO SCH (20:43)
[2021-01-22] VITALS: BP 141/65
[2021-01-22 04:00] VITALS: BP 140/71
[2021-01-22] MEDS: HYDRALAZINE HCL 100MG TABLET PO SCH (05:31)
[2021-01-22 06:55] LABS: BASOPHILS % 1.2 % (0.0-2.0); EOSINOPHILS % 1.7 % (0.0-5.0); HEMATOCRIT. 23.8 % (42.0-52.0); HEMOGLOBIN. 7.8 g/dL (14.0-18.0); LYMPHOCYTES % 33.9 % (20.0-50.0); MEAN CORPUSCULAR VOLUME 82.1 fL (80.0-94.0); MEAN PLATELET VOLUME 8.9 fl (7.4-10.4); MONOCYTES % 9.2 % (2.0-8.0); PLATELET 193 x1000/uL (130-400); RED CELL DISTRIBUTION WIDTH 16.2 % (11.6-14.6)
[2021-01-22] MEDS: BLOOD SUGAR DIAGNOSTIC STRIP TEST SCH ×2 (07:30→12:29)
[2021-01-22 08:00] VITALS: BP 145/59
[2021-01-22] MEDS: INSULIN LISPRO 100 UNITS/ML SUBCUT SCH ×2 (08:00→12:38)
[2021-01-22] MEDS: ALLOPURINOL 100 MG TABLET PO SCH (08:42)
[2021-01-22] MEDS: TAMSULOSIN HCL 0.4MG SR CAPSULE PO SCH (08:42)
[2021-01-22] MEDS: FINASTERIDE 5MG TABLET PO SCH (08:42)
[2021-01-22] MEDS: AMLODIPINE 5MG TABLET PO SCH (08:43)
[2021-01-22] MEDS: SODIUM BICARBONATE 650 MG TABLET PO SCH ×2 (08:43→12:45)
[2021-01-22 11:47] VITALS: BP 135/62
[2021-01-22 12:00] VITALS: BP 142/58
[2021-01-22 12:03] VITALS: BP 135/68
[2021-01-22] MEDS: CEFTRIAXONE 1,000 MG in DEXTROSE 5% WATER 50 ML IV SCH (12:37)
== END 2021-01-22 18:21 | DRG 602 ==
LOC: ER 17:28 → EDBEDREQTM 23:27 → EDBEDREQ 23:27 → MICUSO 23:44 → EDBEDREQDT 01-19 00:19 → EDBEDREQ 01-19 00:19 → EDBEDREQTM 01-19 00:19 → 5EST 01-19 07:44
PROVIDERS: ADMIT Internal Medicine; ATTEND Internal Medicine
DX: L03.114 Cellulitis of left upper limb (principal); E43 Unspecified severe protein-calorie malnutrition; N17.9 Acute kidney failure, unspecified; J44.1 Chronic obstructive pulmonary disease with (acute) exacerbation; K86.2 Cyst of pancreas; E87.2 Acidosis; Z68.1 Body mass index [BMI] 19.9 or less, adult; M10.9 Gout, unspecified; D64.9 Anemia, unspecified; N18.9 Chronic kidney disease, unspecified; M85.80 Other specified disorders of bone density and structure, unspecified site; N40.0 Benign prostatic hyperplasia without lower urinary tract symptoms; R91.1 Solitary pulmonary nodule; Z20.822 Contact with and (suspected) exposure to COVID-19; R74.8 Abnormal levels of other serum enzymes; Z86.73 Personal history of transient ischemic attack (TIA), and cerebral infarction without residual deficits; Z79.891 Long term (current) use of opiate analgesic; Z79.899 Other long term (current) drug therapy
CPT/HCPCS: 36415; 36600; 71045; 71250; 73110; 73200; 73502; 76700; 80048; 80053; 80061; 80305; 81003; 82270; 82375; 82550; 82553; 82575; 82607; 82728; 82746; 82805; 82962; 83036; 83540; 83550; 83970; 84100; 84439; 84443; 84484; 84550; 85025; 85044; 86301; 86850; 86900; 87426; 93005; 93970; 97161; 99285; J0360; J0696; J1815; J7060

== ENCOUNTER 2021-05-24 20:46 | Inpatient (IN) | payer OTHER, MEDICAID ==
[~2021-05-24] VITALS: Ht 172.7 cm; Wt 52.8 kg
[~2021-05-24 20:46] MED LIST changes: +HYDR-4001 MT
[2021-05-24 23:16] LABS: BASOPHILS % 1.4 % (0.0-2.0); EOSINOPHILS % 0.6 % (0.0-5.0); HEMATOCRIT. 22.4 % (42.0-52.0); HEMOGLOBIN. 7.4 g/dL (14.0-18.0); MEAN CORPUSCULAR HEMOGLOBIN 26.8 pg (28.0-32.0); MEAN CORPUSCULAR VOLUME 80.7 fL (80.0-94.0); MEAN PLATELET VOLUME 8.1 fl (7.4-10.4); MONOCYTES % 5.8 % (2.0-8.0); NEUTROPHILS % 66.2 % (40.0-76.0); PLATELET 206 x1000/uL (130-400); RED BLOOD CELL COUNT 2.77 mill/uL (4.7-6.1); RED CELL DISTRIBUTION WIDTH 17.7 % (11.6-14.6)
[2021-05-24 23:49] LABS: CHLORIDE 121 mEq/L (98-107)
[2021-05-25] VITALS: BP 153/91
[2021-05-25] MEDS ORDERED: FUROSEMIDE 100MG/10ML VIAL IV STA (01:26)
[2021-05-25] MEDS ORDERED: INSULIN REGULAR (HUMULIN R) 300UNITS/3ML VIAL IV ONE (01:30)
[2021-05-25] MEDS ORDERED: DEXTROSE 50% WATER 50ML SYRINGE IV ONE (01:30)
[2021-05-25] MEDS ORDERED: DEXTROSE 50% WATER 50ML SYRINGE IV PRN ×2 (07:30→15:45)
[2021-05-25] MEDS: DEXT 5%/0.45% NACL 1000ML 1,000 ML IV SCH (07:36)
[2021-05-25 09:55] LABS: CLARITY URINE CLEAR (CLEAR); COLOR URINE YELLOW (YELLOW); KETONES URINE NEGATIVE (NEGATIVE); LEUKOCYTE ESTERASE URINE NEGATIVE (NEGATIVE); NITRITE URINE NEGATIVE (NEGATIVE); OCCULT BLOOD URINE NEGATIVE (NEGATIVE); PROTEIN URINE 1+ (NEGATIVE); SPECIFIC GRAVITY URINE 1.012 (1.005-1.030); UROBILINOGEN URINE 0.2 E.U./dL (0.2-1.0)
[2021-05-25] MEDS ORDERED: CLONIDINE 0.1MG TABLET PO PRN ×2 (11:30→15:00)
[2021-05-25] MEDS ORDERED: SODIUM POLYSTYRENE SULFONATE 15 G/60 ML BOT PO SCH (13:00)
[2021-05-25 13:28] LABS: BASOPHILS % 1.1 % (0.0-2.0); EOSINOPHILS % 0.8 % (0.0-5.0); HEMATOCRIT. 25.3 % (42.0-52.0); HEMOGLOBIN. 8.6 g/dL (14.0-18.0); LYMPHOCYTES % 22.7 % (20.0-50.0); MEAN CORPUSCULAR HEMOGLOBIN 27.2 pg (28.0-32.0); MEAN CORPUSCULAR VOLUME 80.1 fL (80.0-94.0); MEAN PLATELET VOLUME 7.4 fl (7.4-10.4); MONOCYTES % 5.8 % (2.0-8.0); NEUTROPHILS % 69.6 % (40.0-76.0); PLATELET 191 x1000/uL (130-400); RED BLOOD CELL COUNT 3.16 mill/uL (4.7-6.1); RED CELL DISTRIBUTION WIDTH 17.6 % (11.6-14.6)
[2021-05-25 13:38] LABS: CHLORIDE 117 mEq/L (98-107)
[2021-05-25] MEDS: HYDRALAZINE HCL 50MG TABLET PO SCH ×2 (14:09→22:00)
[2021-05-25] MEDS ORDERED: MORPHINE SULFATE 2 MG/ML CPJ (NOT FOR IM USE) IV PRN (15:00)
[2021-05-25] MEDS ORDERED: AMLODIPINE 5MG TABLET PO SCH (15:00)
[2021-05-25] MEDS ORDERED: HYDROCODONE/ACETAMINOPHEN 5/325MG TABLET PO PRN (15:00)
[2021-05-25] MEDS ORDERED: ACETAMINOPHEN 325MG TABLET PO PRN (15:00)
[2021-05-25] MEDS ORDERED: MAGNESIUM/ALUMINUM HYDROXIDE/SIMETHICONE 30ML UDC PO PRN (15:00)
[2021-05-25] MEDS ORDERED: LORAZEPAM 0.5MG TABLET PO PRN (15:00)
[2021-05-25] MEDS ORDERED: ACETAMINOPHEN 650MG SUPP PR PRN (15:00)
[2021-05-25] MEDS ORDERED: CEFTRIAXONE 1 G PREMIX 50 ML IV SCH (15:00)
[2021-05-25] MEDS ORDERED: NA PHOS,M-B/NA PHOS,DI-BA ENEMA 118ML PR PRN (15:00)
[2021-05-25] MEDS ORDERED: IPRATROPIUM/ALBUTEROL 0.5-3(2.5)MG/3ML NEB NEB PRN (15:00)
[2021-05-25] MEDS ORDERED: ONDANSETRON HCL 4MG/2ML INJ IV PRN (15:00)
[2021-05-25] MEDS ORDERED: DOCUSATE SODIUM 100MG CAPSULE PO PRN (15:00)
[2021-05-25] MEDS ORDERED: DIPHENHYDRAMINE 50MG/ML VIAL IV PRN (15:00)
[2021-05-25] MEDS ORDERED: GUAIFENESIN 200MG/10ML SUGAR FREE UDC PO PRN (15:00)
[2021-05-25 15:43] LABS: BG BASE EXCESS -5.4 mmol/L (-2.0-2.0); BG CARBOXYHEMOGLOBIN 0.4 % (0.5-1.5); BG DEOXYHEMOGLOBIN 4.5 % (0.0-5.0); BG HCO3 ACT 18.9 mmol/L (22.0-26.0); BG METHEMOGLOBIN 0.3 % (0.0-1.5); BG OXYGEN SATURATION 95.5 % (92.0-98.5); BG OXYHEMOGLOBIN 94.8 % (94.0-97.0); BG PCO2 32.2 mmHg (35.0-45.0); BG PH 7.387 (7.350-7.450); BG PO2 81.9 mmHg (75.0-100.0); BG SAMPLE SITE RIGHT BRACHIAL; BG TOTAL HEMOGLOBIN 8.9 g/dL (12.0-18.0); BG VENT MODE ROOM AIR
[2021-05-25] MEDS ORDERED: NALOXONE HCL 0.4MG/ML VIAL IV PRN (15:45)
[2021-05-25] MEDS ORDERED: DIATR MEGLU/DIATRIZOATE SOLN 120ML ONE (16:21)
[2021-05-25] MEDS: SODIUM BICARBONATE 650 MG TABLET PO SCH (17:28)
[2021-05-25] MEDS: BLOOD SUGAR DIAGNOSTIC STRIP TEST SCH ×2 (17:35→21:40)
[2021-05-25] MEDS: INSULIN LISPRO 100 UNITS/ML SUBCUT SCH ×2 (17:36→21:00)
[2021-05-25] MEDS ORDERED: PIPERACILLIN/TAZOBACTAM 3.375 G in DEXTROSE 5% WATER 50 ML IV SCH (21:00)
[2021-05-25 21:10] VITALS: BP 189/80
[2021-05-25] MEDS: AMLODIPINE 5MG TABLET PO SCH (21:59)
[2021-05-25] MEDS: ATORVASTATIN CALCIUM 20MG TABLET PO SCH (22:00)
[2021-05-25] MEDS: FINASTERIDE 5MG TABLET PO SCH (22:00)
[2021-05-25 22:52] VITALS: BP 189/80
[2021-05-26] VITALS (8 sets, daily range): BP systolic 142–160; BP diastolic 53–93
[2021-05-26] MEDS: PIPERACILLIN/TAZOBACTAM 3.375 G in DEXTROSE 5% WATER 50 ML IV SCH ×3 (00:38→20:52)
[2021-05-26] MEDS: DEXT 5%/0.45% NACL 1000ML 1,000 ML IV SCH ×2 (00:41→16:38)
[2021-05-26 00:43] LABS: CREATINE KINASE 160 IU/L (39-308)
[2021-05-26 05:29] LABS: BASOPHILS % 1.4 % (0.0-2.0); EOSINOPHILS % 1.1 % (0.0-5.0); HEMATOCRIT. 23.4 % (42.0-52.0); HEMOGLOBIN. 7.9 g/dL (14.0-18.0); LYMPHOCYTES % 28.4 % (20.0-50.0); MEAN CORPUSCULAR HEMOGLOBIN 26.6 pg (28.0-32.0); MEAN CORPUSCULAR VOLUME 79.2 fL (80.0-94.0); MEAN PLATELET VOLUME 7.9 fl (7.4-10.4); MONOCYTES % 6.3 % (2.0-8.0); NEUTROPHILS % 62.8 % (40.0-76.0); PLATELET 191 x1000/uL (130-400); RED BLOOD CELL COUNT 2.95 mill/uL (4.7-6.1); RED CELL DISTRIBUTION WIDTH 17.5 % (11.6-14.6)
[2021-05-26 05:34] LABS: INR 2.2; PROTHROMBIN TIME 22.4 sec (9.6-11.0)
[2021-05-26 06:12] LABS: CHLORIDE 120 mEq/L (98-107)
[2021-05-26 06:26] LABS: TOTAL IRON BINDING CAPACITY 231 ug/dL (250-450)
[2021-05-26 06:28] LABS: CREATINE KINASE 155 IU/L (39-308); CREATINE KINASE MB FRACTION 5.5 ng/mL (0.5-3.6)
[2021-05-26] MEDS: BLOOD SUGAR DIAGNOSTIC STRIP TEST SCH ×4 (06:31→20:48)
[2021-05-26] MEDS: HYDRALAZINE HCL 50MG TABLET PO SCH ×3 (06:31→22:19)
[2021-05-26] MEDS: INSULIN LISPRO 100 UNITS/ML SUBCUT SCH ×4 (06:32→20:48)
[2021-05-26 07:55] LABS: *COCAINE SCREEN URINE NEGATIVE (NEGATIVE); CANNABINOID URINE SCREEN NEGATIVE (NEGATIVE); PHENCYCLIDINE URINE SCREEN NEGATIVE (NEGATIVE)
[2021-05-26 07:57] LABS: *AMPHETAMINES SCREEN URINE NEGATIVE (NEGATIVE); *BARBITURATES SCREEN URINE NEGATIVE (NEGATIVE); *BENZODIAZEPINES SCREEN URINE NEGATIVE (NEGATIVE); METHADONE URINE SCREEN NEGATIVE (NEGATIVE); OPIATES URINE SCREEN NEGATIVE (NEGATIVE)
[2021-05-26] MEDS ORDERED: PHYTONADIONE 10MG/ML AMP SUBCUT NR (08:15)
[2021-05-26] MEDS: TAMSULOSIN HCL 0.4MG SR CAPSULE PO SCH (08:23)
[2021-05-26] MEDS: AMLODIPINE 5MG TABLET PO SCH ×2 (08:23→20:49)
[2021-05-26] MEDS: SODIUM BICARBONATE 650 MG TABLET PO SCH ×2 (10:57→12:15)
[2021-05-26 12:56] LABS: INR 1.1; PROTHROMBIN TIME 11.9 sec (9.6-11.0)
[2021-05-26] MEDS ORDERED: PHYTONADIONE 10MG/ML AMP SUBCUT SCH (13:00)
[2021-05-26 20:23] LABS: HEMATOCRIT 22.3 % (42.0-52.0); HEMOGLOBIN 7.5 g/dL (14.0-18.0)
[2021-05-26 20:46] LABS: FOLIC ACID (FOLATE) SERUM 16.3 ng/mL (>5.38)
[2021-05-26] MEDS: ATORVASTATIN CALCIUM 20MG TABLET PO SCH (20:49)
[2021-05-26] MEDS: FINASTERIDE 5MG TABLET PO SCH (20:49)
[2021-05-27] VITALS: BP 149/59
[2021-05-27 04:00] VITALS: BP 135/60
[2021-05-27] MEDS: HYDRALAZINE HCL 50MG TABLET PO SCH ×3 (05:53→21:18)
[2021-05-27] MEDS: INSULIN LISPRO 100 UNITS/ML SUBCUT SCH ×4 (05:56→21:22)
[2021-05-27] MEDS: BLOOD SUGAR DIAGNOSTIC STRIP TEST SCH ×4 (05:56→21:14)
[2021-05-27 07:19] LABS: INR 1.1; PROTHROMBIN TIME 11.4 sec (9.6-11.0)
[2021-05-27] MEDS ORDERED: SODIUM BICARBONATE 4% (2.4MEQ) 5ML VIAL IV ONE (08:45)
[2021-05-27 10:17] VITALS: BP 160/60
[2021-05-27 10:22] LABS: BASOPHILS % 1.2 % (0.0-2.0); HEMATOCRIT. 25.8 % (42.0-52.0); HEMOGLOBIN. 8.7 g/dL (14.0-18.0); LYMPHOCYTES % 31.9 % (20.0-50.0); MEAN CORPUSCULAR HEMOGLOBIN 27.1 pg (28.0-32.0); MEAN CORPUSCULAR VOLUME 80.5 fL (80.0-94.0); MONOCYTES % 5.8 % (2.0-8.0); NEUTROPHILS % 60.1 % (40.0-76.0); PLATELET 185 x1000/uL (130-400); RED BLOOD CELL COUNT 3.21 mill/uL (4.7-6.1); RED CELL DISTRIBUTION WIDTH 17.2 % (11.6-14.6)
[2021-05-27] MEDS: PIPERACILLIN/TAZOBACTAM 3.375 G in DEXTROSE 5% WATER 50 ML IV SCH ×2 (10:22→21:17)
[2021-05-27] MEDS: TAMSULOSIN HCL 0.4MG SR CAPSULE PO SCH (10:22)
[2021-05-27] MEDS: AMLODIPINE 5MG TABLET PO SCH ×2 (10:22→21:18)
[2021-05-27] MEDS: PHYTONADIONE 10MG/ML AMP SUBCUT SCH (10:23)
[2021-05-27 12:00] VITALS: BP 159/63
[2021-05-27] MEDS: DEXT 5%/0.45% NACL 1000ML 1,000 ML IV SCH (13:04)
[2021-05-27 16:00] VITALS: BP 145/59
[2021-05-27 20:00] VITALS: BP 149/58
[2021-05-27] MEDS: FINASTERIDE 5MG TABLET PO SCH (21:18)
[2021-05-27] MEDS: ATORVASTATIN CALCIUM 20MG TABLET PO SCH (21:42)
[2021-05-28] VITALS (7 sets, daily range): BP systolic 122–167; BP diastolic 48–72
[2021-05-28] MEDS ORDERED: ACETAMINOPHEN 325MG TABLET PO PRN (01:00)
[2021-05-28 02:57] LABS: BASOPHILS % 0.8 % (0.0-2.0); EOSINOPHILS % 0.7 % (0.0-5.0); HEMATOCRIT. 23.6 % (42.0-52.0); HEMOGLOBIN. 7.9 g/dL (14.0-18.0); MEAN CORPUSCULAR HEMOGLOBIN 26.4 pg (28.0-32.0); MEAN PLATELET VOLUME 8.3 fl (7.4-10.4); MONOCYTES % 8.2 % (2.0-8.0); NEUTROPHILS % 68.3 % (40.0-76.0); PLATELET 176 x1000/uL (130-400); RED BLOOD CELL COUNT 2.99 mill/uL (4.7-6.1); RED CELL DISTRIBUTION WIDTH 17.5 % (11.6-14.6)
[2021-05-28] MEDS ORDERED: VANCOMYCIN 750MG PREMIX 150 ML IV SCH (03:00)
[2021-05-28] MEDS: HYDRALAZINE HCL 50MG TABLET PO SCH ×2 (05:47→14:29)
[2021-05-28] MEDS: INSULIN LISPRO 100 UNITS/ML SUBCUT SCH ×4 (05:52→20:40)
[2021-05-28] MEDS: BLOOD SUGAR DIAGNOSTIC STRIP TEST SCH ×4 (05:52→20:29)
[2021-05-28] MEDS: PIPERACILLIN/TAZOBACTAM 3.375 G in DEXTROSE 5% WATER 50 ML IV SCH (09:34)
[2021-05-28] MEDS: PHYTONADIONE 10MG/ML AMP SUBCUT SCH (09:34)
[2021-05-28] MEDS: TAMSULOSIN HCL 0.4MG SR CAPSULE PO SCH (09:34)
[2021-05-28] MEDS: AMLODIPINE 5MG TABLET PO SCH (09:35)
[2021-05-28] MEDS: DEXT 5%/0.45% NACL 1000ML 1,000 ML IV SCH (09:36)
[2021-05-28] MEDS ORDERED: LEVO250T58 MT (12:23)
[2021-06-02 17:07] LABS: OVA & PARASITE EXAM Final report (.)
== END 2021-05-28 20:42 | disposition hospice, home (50) | DRG 391 ==
LOC: ER 20:46 → 5WST 05-25 02:00 → ENRESERV 05-25 19:22
PROVIDERS: ADMIT Internal Medicine; ATTEND Internal Medicine
PROC: 30233N1 Transfusion of Nonautologous Red Blood Cells into Peripheral Vein, Percutaneous Approach (ICD-10-PCS; principal; 2021-05-25)
PROC: 30233K1 Transfusion of Nonautologous Frozen Plasma into Peripheral Vein, Percutaneous Approach (ICD-10-PCS; 2021-05-26)
PROC: 0W9B3ZZ Drainage of Left Pleural Cavity, Percutaneous Approach (ICD-10-PCS; 2021-05-27)
DX: K52.9 Noninfective gastroenteritis and colitis, unspecified (principal); N18.6 End stage renal disease; D68.9 Coagulation defect, unspecified; J90 Pleural effusion, not elsewhere classified; K86.2 Cyst of pancreas; E87.1 Hypo-osmolality and hyponatremia; I13.11 Hypertensive heart and chronic kidney disease without heart failure, with stage 5 chronic kidney disease, or end stage renal disease; N17.9 Acute kidney failure, unspecified; D64.9 Anemia, unspecified; E11.22 Type 2 diabetes mellitus with diabetic chronic kidney disease; E11.649 Type 2 diabetes mellitus with hypoglycemia without coma; E87.5 Hyperkalemia; Z20.822 Contact with and (suspected) exposure to COVID-19; H91.90 Unspecified hearing loss, unspecified ear; J44.9 Chronic obstructive pulmonary disease, unspecified; N32.89 Other specified disorders of bladder; N40.0 Benign prostatic hyperplasia without lower urinary tract symptoms; R06.03 Acute respiratory distress; Z79.899 Other long term (current) drug therapy; Z86.73 Personal history of transient ischemic attack (TIA), and cerebral infarction without residual deficits; Z99.2 Dependence on renal dialysis; Z87.891 Personal history of nicotine dependence; R91.1 Solitary pulmonary nodule; D73.89 Other diseases of spleen; Z87.19 Personal history of other diseases of the digestive system
CPT/HCPCS: 32555; 36415; 36600; 71045; 71250; 74176; 76700; 80048; 80053; 80305; 81003; 82040; 82375; 82550; 82553; 82607; 82728; 82746; 82805; 82962; 83540; 83550; 83615; 83970; 84100; 84132; 84443; 84478; 84484; 85014; 85018; 85025; 85044; 85651; 86140; 86301; 86850; 86900; 86920; 86927; 87015; 87045; 87177; 87209; 87426; 87427; 87449; 87493; 89055; 93005; 93970; 97161; 99285; J0696; J1815; J1940; J2543; J3370; J3430; J3490; J7040; J7060; P9016; P9017; Q9963; A4315